=== PATIENT | male | born 1960 | race Caucasian/White ===

== ENCOUNTER 2024-08-22 23:15 | Observation (INO) | payer OTHER, SELFPAY ==
--- NOTE | ~2024-08-22 | CT_ITS ---
EXAMINATION: CT abdomen pelvis w con DATE: 08/23/2024 00:29 INDICATION: Right upper quadrant abdominal pain TECHNIQUE: Computed tomography (CT) of the abdomen and pelvis was performed with 100 CC Omnipaque 350 intravenous contrast. Automated exposure control and iterative reconstruction technique were employe d. Exam dose: 456.07 mGy-cm total exam DLP. COMPARISON: None. FINDINGS: The lung bases are clear. Normal heart size. Coronary artery calcifications. No pericardial or pleural effusion. There are multiple stones in the dependent aspect of the gallbladder. There is gallbladder distention and borderline gallbladder wall thickening and slight pericholecystic fat stranding. Acute cholecyst itis is not excluded. No bile duct or pancreatic duct dilatation. No hepatic or pancreatic space-occupying mass lesion. No pancreatic calcification. Normal morphology of the adrenal glands. No renal mass lesion or urinary tract calculus or hydroureteronephrosis. There is prostate enlargement. Urinary bladder is unremarkable. Normal caliber of the abdominal aorta. No intraperitoneal or retroperitoneal or pelvic mass lesion or adenopathy or ascites. No appendix is not definitively localized. There is no evidence of appendicitis. No bowel obstruction , bowel wall thickening, pneumatosis or intraperitoneal free air. Small fat-containing left inguinal hernia. Included skeletal structures are unremarkable. IMPRESSION: Gallbladder distention, or lying gallbladder wall thickening, minimal pericholecystic fa t stranding and gallstones. Findings suggest acute cholecystitis. Reviewed, dictated and finalized at [facility] Reviewed, dictated and finalized at [facility]. GER FOREIGN IMPRESSION: Gallbladder distention, or lying gallbladder wall thickening, mini mal pericholecystic fat stranding and gallstones. Findings suggest acute cholec ystitis.
[2024-08-22 23:29] VITALS: BP 149/79; PULSE 84; RESP 15; TEMP 36.3; O2SAT 99
[2024-08-22 23:34] LABS: Basophils Absolute Auto 0.1 K/mm3 (0.0-0.1); Basophils Percent Auto 0.3 % (0.2-1.2); Eosinophils Absolute Auto 0.4 K/mm3 (0-0.3); Eosinophils Percent Auto 2.3 % (0-4.4); Hematocrit 41.3 % (42.0-52.0); Hemoglobin 14.3 g/dL (14.0-18.0); Immature Granulocyte Absolute 0.05 K/mm3 (0.00-0.031); Immature Granulocyte Percent A 0.3 % (0-0.5); Lymphocytes Absolute Auto 1.71 K/mm3 (0.9-3.2); Lymphocytes Percent Auto 9.6 % (18.3-44.2); Mean Corpuscular HGB Conc 34.6 g/dl (32-36); Mean Corpuscular Hemoglobin 30.2 pg (26-34); Mean Corpuscular Volume 87.1 fl (80-100); Mean Platelet Volume 10.2 fl (7.4-10.4); Monocytes Absolute Auto 1.4 K/mm3 (0.1-0.6); Monocytes Percent Auto 7.9 % (2.6-8.5); Neutrophils Absolute Auto 14.2 K/mm3 (1.3-6.7); Neutrophils Percent Auto 79.6 % (45.5-73.1); Platelet Count Result 241 k/mm3 (150-375); Red Blood Count 4.74 M/mm3 (4.6-6.20); Red Cell Distribution Width 12.8 % (11.5-14.5); White Blood Count 17.8 K/mm3 (4.5-10.0)
[2024-08-22 23:53] LABS: Alanine Aminotransferase 45 U/L (6-50); Albumin Level 4.9 g/dL (3.5-5.1); Alkaline Phosphatase 138 U/L (38-126); Anion Gap 5 mmol/L (4-12); Aspartate Amino Transferase 53 U/L (17-59); Bilirubin,Total 0.8 mg/dL (0.2-1.3); Blood Urea Nitrogen 25 mg/dL (9-20); Carbon Dioxide 30 mmol/L (22-30); Chloride 100 mmol/L (98-107); Estimated CRCL calculation 51 ml/min; Estimated Glomerular Filt Rate > 60; Glucose 169 mg/dL (65-110); Lipase 229 U/L (23-300); Potassium 4.1 mmol/L (3.4-5.0); Sodium 135 mmol/L (137-145)
[2024-08-23] MEDS: FAMOTIDINE 20 MG/2 ML VIAL IV PUSH (00:18)
[2024-08-23] MEDS: ONDANSETRON INJ 4 MG/2 ML VIAL IV PUSH (00:18)
[2024-08-23] MEDS: MORPHINE SULFATE (*CRX) 4 MG/ML INJ IV PUSH (00:18)
--- NOTE | 2024-08-23 00:47 | ED_ITS ---
HPI - Abdominal Pain General Chief Complaint: Abdominal Pain <CRISSY Jc Last Filed: 08/23/24 01:45> Stated Complaint: Stomach hurts <CRISSY Jc Last Filed: 08/23/24 01:45> Time Seen by Provider: 08/22/24 23:47 <CRISSY Jc Last Filed: 08/23/24 01:45> Source: patient <CRISSY Jc Last Filed: 08/23/24 01:45> Mode of arrival: ambulatory <CRISSY Jc Last Filed: 08/23/24 01:45> Limitations: no limitations <CRISSY Jc Last Filed: 08/23/24 01:45> History of Present Illness HPI narrative: Patient is a 64-year-old male who presents the ED with report of right upper quadrant abdominal pain. Patient reports pain began last night around 2am. Has been constant since then. Has taken aleve and tylenol w/o improvement. Denies any alleviating factors. Pain did not change much with eating. Denies significant nausea, vomiting, diarrhea, constipation, fevers. Has never had pain like this before. Has history of diabetes and has been on Mounjaro, recently had his dose increased. He does mention he has lost approximately 30 lb the last 6 months intentionally. <CRISSY Jc Last Filed: 08/23/24 01:45> Related Data Allergies/Adverse Reactions: Allergies Allergy/AdvReac Type Severity Reaction Status Date / Time erythromycin base Allergy Mild Verified 12/01/08 10:48 <CRISSY Jc Last Filed: 08/23/24 01:45> Review of Systems 2 Review of Systems: All systems reviewed & are unremarkable except as noted in HPI. <CRISSY Jc Last Filed: 08/23/24 01:45> All systems reviewed & are unremarkable except as noted in HPI and below < CRISSY Jc Last Filed: 08/23/24 01:45> Exam 2 Narrative: GENERAL: Well appearing, well-nourished, non-toxic, in no acute distress. HEAD: Normocephalic, atraumatic. RESPIRATORY: Airway patent, respirations nonlabored. Clear to auscultation bilaterally, no rales, rhonchi, wheezing. CARDIOVASCULAR: Regular rate and rhythm without murmurs, rubs, or gallops. ABDOMINAL: Soft, focal TTP and fullness in RUQ. No other significant tenderness throughout abdomen, nondistended. Normoactive BS. MUSCULOSKELETAL: Moves all extremities. No gross deformities. SKIN: Warm, dry, normal color. NEURO: A&O X3. Speech clear. PSYCHIATRIC: Appropriate mood and affect. Normal interaction. <Evelina Uribe PA-C - Last Filed: 08/23/24 01:45> Course JACKHAMMER SPLITTER OPERATOR/PA Physician Supervision For this patient encounter, I reviewed the JACKHAMMER SPLITTER OPERATOR or PA documentation, treatment plan, and medical decision making; and I had [id number] time with this patient. <Dean Hubbard MD - Last Filed: 08/23/24 04:34> Vital Signs Vital signs: Vital Signs Temperature 36.3 C L 08/22/24 23:29 Pulse Rate 84 08/22/24 23:29 Respiratory Rate 15 08/22/24 23:29 Blood Pressure 149/79 H 08/22/24 23:29 Pulse Oximetry 99 08/22/24 23:29 Temperature 36.3 C L 08/22/24 23:29 Pulse Rate 77 08/23/24 03:51 Respiratory Rate 18 08/23/24 03:51 Blood Pressure 141/88 H 08/23/24 03:51 Pulse Oximetry 94 08/23/24 03:51 <Evelina Uribe PA-C - Last Filed: 08/23/24 01:45> Vital Signs Temperature 36.3 C L 08/22/24 23:29 Pulse Rate 84 08/22/24 23:29 Respiratory Rate 15 08/22/24 23:29 Blood Pressure 149/79 H 08/22/24 23:29 Pulse Oximetry 99 08/22/24 23:29 Temperature 36.3 C L 08/22/24 23:29 Pulse Rate 77 08/23/24 03:51 Respiratory Rate 18 08/23/24 03:51 Blood Pressure 141/88 H 08/23/24 03:51 Pulse Oximetry 94 08/23/24 03:51 <Dean Hubbard MD - Last Filed: 08/23/24 04:34> MDM - Abdominal Pain MDM Narrative Medical decision making narrative: Patient presented to ED with right upper quadrant abdominal pain onset yesterday, constant since then. Vital signs stable upon arrival. Patient with moderate tenderness in right upper quadrant, area of fullness in upper abdomen. CBC with white blood cell count of 17.8. Neutrophil predominance. No bandemia. CMP is unremarkable. Blood glucose is mildly elevated to 169. Bilirubin, AST, ALT are within normal range. Lipase within normal range. CT scan of abdomen pelvis was obtained and pending. Patient denied improvement with morphine. Will give dilaudid. Care signed out to Dr. Hubbard at shift change pending STAT RAD CT results. < Evelina Uribe PA-C - Last Filed: 08/23/24 01:45> Patient presented to ED with right upper quadrant abdominal pain onset yesterday, constant since then. Vital signs stable upon arrival. Patient with moderate tenderness in right upper quadrant, area of fullness in upper abdomen. CBC with white blood cell count of 17.8. Neutrophil predominance. No bandemia. CMP is unremarkable. Blood glucose is mildly elevated to 169. Bilirubin, AST, ALT are within normal range. Lipase within normal range. CT scan of abdomen pelvis was obtained and pending. Patient denied improvement with morphine. Will give dilaudid. Care signed out to Dr. Hubbard at shift change pending STAT RAD CT results. CT scan showed evidence of acute cholecystitis. Case was discussed with Dr. Mitchell will admit the patient <Dean Hubbard MD - Last Filed: 08/23/24 04:34> Medical Records Attestation: I reviewed the patient's medical records. <Evelina Uribe PA-C - Last Filed: 08/23/24 01:45> Lab Data Attestation: I reviewed the patient's lab results. <Evelina Uribe PA-C - Last Filed: 08/23/24 01:45> Result diagrams: 08/22/24 23:28 08/22/24 23:28 <Evelina Uribe PA-C - Last Filed: 08/23/24 01:45> Labs: Lab Results 08/22/24 08/23/24 Range/Units 23:28 02:11 WBC 17.8 H (4.5-10.0) K/mm3 RBC 4.74 (4.6-6.20) M/mm3 Hgb 14.3 (14.0-18.0) g/dL Hct 41.3 L (42.0-52.0) % MCV 87.1 (80-100) fl MCH 30.2 (26-34) pg MCHC 34.6 (32-36) g/dl RDW 12.8 (11.5-14.5) % Plt Count 241 (150-375) k/mm3 MPV 10.2 (7.4-10.4) fl Immature Gran % (Auto) 0.3 (0-0.5) % Neut % (Auto) 79.6 H (45.5-73.1) % Lymph % (Auto) 9.6 L (18.3-44.2) % [place] % (Auto) 7.9 (2.6-8.5) % Eos % (Auto) 2.3 (0-4.4) % Baso % (Auto) 0.3 (0.2-1.2) % Lymph # (Auto) 1.71 (0.9-3.2) K/mm3 [place] # (Auto) 1.4 H (0.1-0.6) K/mm3 Eos # (Auto) 0.4 H (0-0.3) K/mm3 Baso # (Auto) 0.1 (0.0-0.1) K/mm3 Abs Immat Gran (auto) 0.05 H (0.00-0.031) K/mm3 Absolute Neuts (auto) 14.2 H (1.3-6.7) K/mm3 Absolute Nucleated RBC 0.000 (0.0-0.012) K/mm3 Nucleated RBC % 0.0 (0.0-0.2) % Sodium 135 L (137-145) mmol/L Potassium 4.1 (3.4-5.0) mmol/L Chloride 100 (98-107) mmol/L Carbon Dioxide 30 (22-30) mmol/L Anion Gap 5 (4-12) mmol/L BUN 25 H (9-20) mg/dL Creatinine 1.20 (0.7-1.3) mg/dL Estim Creat Clear Calc 51 ml/min Estimated GFR > 60 (59 - ) Glucose 169 H (65-110) mg/dL Calcium 10.0 (8.4-10.2) mg/dL Total Bilirubin 0.8 (0.2-1.3) mg/dL AST 53 (17-59) U/L ALT 45 (6-50) U/L Alkaline Phosphatase 138 H (38-126) U/L Total Protein 8.0 (6.3-8.2) g/dL Albumin 4.9 (3.5-5.1) g/dL Lipase 229 (23-300) U/L Urine Color Yellow (Yellow) Urine Appearance Clear (Clear) Urine pH 5.5 (5.0-9.0) Ur Specific [place] > 1.045 H (1.001-1.035) Urine Protein 1+ H (Negative) mg/dL Urine Glucose (UA) Negative (Negative) mg/dL Urine Ketones Negative (Negative) mg/dL Ur Blood (Man) Negative (Negative) Urine Nitrate Negative (Negative) Urine Bilirubin Negative (Negative) Urine Urobilinogen 0.2 (<2.0) mg/dL Leukocyte Esterase Rfl Negative (Negative) FERCHO/UL Urine RBC 0-2 (0-2) /hpf Urine WBC 0-5 (0-3) /hpf Ur Squamous Epith Cells None seen (Few) /hpf Urine Bacteria None seen /hpf Urine Casts 0-2 <Evelina Uribe PA-C - Last Filed: 08/23/24 01:45> Lab Results 08/22/24 08/23/24 Range/Units 23:28 02:11 WBC 17.8 H (4.5-10.0) K/mm3 RBC 4.74 (4.6-6.20) M/mm3 Hgb 14.3 (14.0-18.0) g/dL Hct 41.3 L (42.0-52.0) % MCV 87.1 (80-100) fl MCH 30.2 (26-34) pg MCHC 34.6 (32-36) g/dl RDW 12.8 (11.5-14.5) % Plt Count 241 (150-375) k/mm3 MPV 10.2 (7.4-10.4) fl Immature Gran % (Auto) 0.3 (0-0.5) % Neut % (Auto) 79.6 H (45.5-73.1) % Lymph % (Auto) 9.6 L (18.3-44.2) % [place] % (Auto) 7.9 (2.6-8.5) % Eos % (Auto) 2.3 (0-4.4) % Baso % (Auto) 0.3 (0.2-1.2) % Lymph # (Auto) 1.71 (0.9-3.2) K/mm3 [place] # (Auto) 1.4 H (0.1-0.6) K/mm3 Eos # (Auto) 0.4 H (0-0.3) K/mm3 Baso # (Auto) 0.1 (0.0-0.1) K/mm3 Abs Immat Gran (auto) 0.05 H (0.00-0.031) K/mm3 Absolute Neuts (auto) 14.2 H (1.3-6.7) K/mm3 Absolute Nucleated RBC 0.000 (0.0-0.012) K/mm3 Nucleated RBC % 0.0 (0.0-0.2) % Sodium 135 L (137-145) mmol/L Potassium 4.1 (3.4-5.0) mmol/L Chloride 100 (98-107) mmol/L Carbon Dioxide 30 (22-30) mmol/L Anion Gap 5 (4-12) mmol/L BUN 25 H (9-20) mg/dL Creatinine 1.20 (0.7-1.3) mg/dL Estim Creat Clear Calc 51 ml/min Estimated GFR > 60 (59 - ) Glucose 169 H (65-110) mg/dL Calcium 10.0 (8.4-10.2) mg/dL Total Bilirubin 0.8 (0.2-1.3) mg/dL AST 53 (17-59) U/L ALT 45 (6-50) U/L Alkaline Phosphatase 138 H (38-126) U/L Total Protein 8.0 (6.3-8.2) g/dL Albumin 4.9 (3.5-5.1) g/dL Lipase 229 (23-300) U/L Urine Color Yellow (Yellow) Urine Appearance Clear (Clear) Urine pH 5.5 (5.0-9.0) Ur Specific [place] > 1.045 H (1.001-1.035) Urine Protein 1+ H (Negative) mg/dL Urine Glucose (UA) Negative (Negative) mg/dL Urine Ketones Negative (Negative) mg/dL Ur Blood (Man) Negative (Negative) Urine Nitrate Negative (Negative) Urine Bilirubin Negative (Negative) Urine Urobilinogen 0.2 (<2.0) mg/dL Leukocyte Esterase Rfl Negative (Negative) FERCHO/UL Urine RBC 0-2 (0-2) /hpf Urine WBC 0-5 (0-3) /hpf Ur Squamous Epith Cells None seen (Few) /hpf Urine Bacteria None seen /hpf Urine Casts 0-2 <Dean Hubbard MD - Last Filed: 08/23/24 04:34> Imaging Data Attestation: I personally reviewed and interpreted this imaging study as follows: < Evelina Uribe PA-C - Last Filed: 08/23/24 01:45> Discharge Plan Discharge Clinical Impression: Right upper quadrant abdominal pain, Cholelithiasis, Acute cholecystitis <CRISSY Jc Last Filed: 08/23/24 01:45> Patient Disposition: Still a Patient <CRISSY Jc Last Filed: 08/23/24 01:45> Condition: Stable <CRISSY Jc Last Filed: 08/23/24 01:45> Instructions: Antibiotic Form <CRISSY Jc Last Filed: 08/23/24 01:45> Patient Language: Sinhala <CRISSY Jc Last Filed: 08/23/24 01:45> Follow-up/Referrals: PHYSICIAN NOT ON STAFF,NONSTAFF [Primary Care Provider] - <CRISSY Jc Last Filed: 08/23/24 01:45> Time of Disposition: 04:33 <Evelina Uribe PA-C - Last Filed: 08/23/24 01:45> 04:33 <Dean Hubbard MD - Last Filed: 08/23/24 04:34> Sign Out Sign Out Data: Patient Sign Out occurred on 08/23/24 at 01:50. Patient's care was discussed, and care was transferred from Evelina Uribe PA-C to Dean Hubbard MD. <Evelina Uribe PA-C - Last Filed: 08/23/24 01:45>
[2024-08-23] MEDS: HYDROmorphone HCL INJ (*CRX) 1 MG/ML SYR IV PUSH ×5 (01:47→21:32)
[2024-08-23 02:24] LABS: Add Urine Microscopic? YES; Appearance Urine Clear (Clear); Bacteria Urine None Seen /hpf; Bilirubin Urine Negative (Negative); Blood Urine Negative (Negative); Color Urine Yellow (Yellow); Glucose Urine UA Negative (Negative); Ketones Urine Negative (Negative); Leukocyte Esterase Ur Negative LEU/UL (Negative); Nitrate Urine Negative (Negative); Non Pathogenic Casts 0-2; Protein Urine 1+ mg/dL (Negative); RBC Urine 0-2 /hpf (0-2); Specific Grav Ur > 1.045 (1.001-1.035); Squamous Epithelial Cell Urine None Seen /hpf (Few); Urobilinogen Urine 0.2 mg/dL (<2.0); WBC Urine 0-5 /hpf (0-3); pH Urine 5.5 (5.0-9.0)
[2024-08-23 02:35] VITALS: BP 122/71; PULSE 75; RESP 18; O2SAT 95
[2024-08-23] MEDS: SODIUM CHLORIDE 0.9% IV 1,000 ML 999 ML IV CONT (03:01)
[2024-08-23 03:51] VITALS: BP 141/88; PULSE 77; RESP 18; O2SAT 94
[2024-08-23] MEDS: PIPERACILLN/TAZ 3.375GM/NS50ML 3.375 GM/50 ML BAG IVPB ×4 (05:19→23:05)
[2024-08-23] MEDS: SODIUM CHLORIDE 0.9% IV 1,000 ML 125 ML IV CONT ×3 (05:19→22:41)
[2024-08-23 05:54] VITALS: BP 139/70; PULSE 96; RESP 18; O2SAT 95
--- NOTE | 2024-08-23 06:01 | ADMGEN ---
This patient, Bruno Kelsey, was admitted to Medical Room 260-. Patient/family oriented to hospital policies and general routines including ID bracelet, bed and alarms, visiting hours, pain management, procedures, bathroom and other care routines, personal items, smoking policy, room service/diet, and visiting hours. Information on how to activate the Rapid Response Team has been discussed. Patient/Family are encouraged to report perceived risks to care and to ask questions if they do not understand what they are told or what they should do.
[2024-08-23 06:10] VITALS: BP 121/69; PULSE 84; RESP 16; TEMP 37.1; O2SAT 96; BMI 28.3
[2024-08-23] MEDS: PANTOPRAZOLE SODIUM IV 40 MG VIAL IV PUSH (08:01)
[2024-08-23] MEDS: ACETAMINOPHEN 325 MG TABLET 650 MG PO (08:07)
--- NOTE | 2024-08-23 11:52 | P.HP_ITS ---
H&P: HPI History of Present Illness Date/Time: 08/23/24 11:52 Chief Complaint: Acute cholecystitis Narrative: The patient is a 64-year-old male presenting to the emergency department complaining of severe epigastric, right upper quadrant abdominal pain. The patient reports associated bloating and nausea. The patient reports the pain started acutely overnight on Saturday. The patient reports the pain is constant. The patient denies any previous similar episodes. Workup in the hospital, including imaging, is significant for acute cholecystitis. Review of Systems Review of Systems: All systems reviewed & are unremarkable except as noted in HPI and below PMFSH Family History Family History Mother Ovarian cancer Father Diabetes mellitus H/O heart artery stent Social History Social History Smoking status: Never smoker Alcohol intake: never Substance use: never Substance use type: does not use Do You Feel Safe in your Home?: Yes Lack of Transportation: No Lack of Food: Never True Current Housing: I Have Housing Concerned About Future Housing: No Difficulty Paying Gas/Electric Bills: No Difficulty Paying for Meds: No Currently Unemployed: No Education: Bachelor's Degree Difficulty w/ Childcare or Family Care: No Spiritual care concerns: No Comments PMH - HTN, DM SH - appendectomy Meds Home Medications and Allergies Home Medications ?Medication ?Instructions ?Recorded ?Confirmed ?Type acetaminophen 650 mg 1,300 mg PO Q8H PRN pain 08/23/24 08/23/24 History tablet,extended release (8 Hour Pain Reliever) aspirin 81 mg tablet,delayed 81 mg PO DAILY 08/23/24 08/23/24 History release (Adult Aspirin Regimen) duloxetine 60 mg capsule,delayed 60 mg PO DAILY 08/23/24 08/23/24 History release glucosamine sulfate 750 mg tablet 1,500 mg PO DAILY 08/23/24 08/23/24 History hydrochlorothiazide 25 mg tablet 25 mg PO DAILY 08/23/24 08/23/24 History losartan 50 mg tablet 50 mg PO DAILY 08/23/24 08/23/24 History metformin 500 mg tablet,extended 2,000 mg PO DAILY 08/23/24 08/23/24 History release 24 hr multivitamin (Daily Multi-Vitamin 1 tablet PO DAILY 08/23/24 08/23/24 History tablet) naproxen sodium 220 mg capsule 220 mg PO Q8H 08/23/24 08/23/24 History (Aleve) pantoprazole 40 mg tablet,delayed 40 mg PO DAILY 08/23/24 08/23/24 History release ropinirole 0.25 mg tablet 0.25 mg PO HS 08/23/24 08/23/24 History rosuvastatin 40 mg tablet 40 mg PO HS 08/23/24 08/23/24 History tirzepatide 5 mg/0.5 mL 7.5 mg subcut WEEKLY 08/23/24 08/23/24 History subcutaneous pen injector (Mounjaro) Allergies Allergy/AdvReac Type Severity Reaction Status Date / Time erythromycin base Allergy Mild Verified 12/01/08 10:48 Vital Signs Vital Signs - 24 hr 08/22/24 23:29 08/23/24 02:35 08/23/24 03:51 Temperature 36.3 C L Pulse Rate 84 75 77 Respiratory Rate 15 18 18 Blood Pressure 149/79 H 122/71 141/88 H Pulse Oximetry 99 95 94 Oxygen Delivery 08/23/24 05:54 08/23/24 06:10 08/23/24 08:01 Temperature 37.1 C Pulse Rate 96 84 Respiratory Rate 18 16 Blood Pressure 139/70 121/69 Pulse Oximetry 95 96 Oxygen Delivery Room Air Exam Const: General: cooperative, no acute distress and uncomfortable HENMT: Head: normal to inspection, normocephalic and atraumatic Eyes: General: appearance normal, both eyes and all related structures Neck: Neck: normal visual inspection, full ROM and no lymphadenopathy Resp: Auscultation: clear to auscultation bilaterally Cardio: Rate: regular rate Rhythm: regular rhythm GI: Inspection: normal to inspection and distended GI Palp: Yes abdominal tenderness, Yes Soft to palpation and Yes Tenderness to palpation present (GI) Skin: General skin exam: normal color and no rashes or lesions noted Neuro: General: patient oriented x3 and CN's II-XI intact bilaterally Extrem: General: normal to inspection and full ROM H&P: Results Labs Labs: Short CBC 08/22/24 Range/Units 23:28 WBC 17.8 H (4.5-10.0) K/mm3 Hgb 14.3 (14.0-18.0) g/dL Hct 41.3 L (42.0-52.0) % Plt Count 241 (150-375) k/mm3 BMP 08/22/24 23:28 Sodium 135 L Potassium 4.1 Chloride 100 Carbon Dioxide 30 BUN 25 H Creatinine 1.20 Glucose 169 H Calcium 10.0 Liver Function 08/22/24 Range/Units 23:28 Total Bilirubin 0.8 (0.2-1.3) mg/dL AST 53 (17-59) U/L ALT 45 (6-50) U/L Alkaline Phosphatase 138 H (38-126) U/L Albumin 4.9 (3.5-5.1) g/dL Urine 08/23/24 Range/Units 02:11 Urine Color Yellow (Yellow) Urine Appearance Clear (Clear) Urine pH 5.5 (5.0-9.0) Ur Specific [place] > 1.045 H (1.001-1.035) Urine Protein 1+ H (Negative) mg/dL Urine Glucose (UA) Negative (Negative) mg/dL Imaging CT scan - abdomen: My impression: Acute cholecystitis Assessment and Plan Assessment and plan (1) Acute cholecystitis: Code(s): K81.0 - Acute cholecystitis Status: Acute Assessment and Plan: continue antibiotics, will start clears, discussed with patient and would like to proceed with urgent cholecystectomy (2) Hypertension: Code(s): I10 - Essential (primary) hypertension Status: Acute Assessment and Plan: stable, continue home medications (3) Diabetes: Code(s): E11.9 - Type 2 diabetes mellitus without complications Status: Acute Assessment and Plan: continue to monitor blood sugars, resume home medications
[2024-08-23 13:01] LABS: Glucose Point of Care 150 mg/dl (65-105)
[2024-08-23 16:22] VITALS: BP 131/75; PULSE 92; RESP 16; TEMP 37.3; O2SAT 92
[2024-08-23 17:22] LABS: Glucose Point of Care 153 mg/dl (65-105)
[2024-08-23] MEDS: HYDROcodone/acetaminophen (*CRX) 5-325 MG TABLET 1 TAB PO (18:53)
[2024-08-23 22:09] VITALS: BP 117/69; PULSE 102; RESP 16; O2SAT 92
[2024-08-23 22:57] LABS: Glucose Point of Care 150 mg/dl (65-105)
[2024-08-24] VITALS (10 sets, daily range): BP systolic 114–164; BP diastolic 72–90; PULSE 100–135; RESP 14–22; TEMP 36.2–37; O2SAT 90–100
[2024-08-24 01:52] LABS: Glucose Point of Care 131 mg/dl (65-105)
[2024-08-24] MEDS: PIPERACILLN/TAZ 3.375GM/NS50ML 3.375 GM/50 ML BAG IVPB ×4 (05:12→23:10)
[2024-08-24] MEDS: HYDROcodone/acetaminophen (*CRX) 5-325 MG TABLET 1 TAB PO ×4 (05:16→20:45)
[2024-08-24 05:41] LABS: Hematocrit 35.9 % (42.0-52.0); Hemoglobin 11.9 g/dL (14.0-18.0); Mean Corpuscular HGB Conc 33.1 g/dl (32-36); Mean Corpuscular Hemoglobin 29.8 pg (26-34); Mean Platelet Volume 10.3 fl (7.4-10.4); Platelet Count Result 175 k/mm3 (150-375); Red Blood Count 3.99 M/mm3 (4.6-6.20); White Blood Count 19.4 K/mm3 (4.5-10.0)
[2024-08-24 06:03] LABS: Alanine Aminotransferase 38 U/L (6-50); Albumin Level 3.5 g/dL (3.5-5.1); Alkaline Phosphatase 129 U/L (38-126); Anion Gap 6 mmol/L (4-12); Aspartate Amino Transferase 31 U/L (17-59); Bilirubin,Total 1.2 mg/dL (0.2-1.3); Blood Urea Nitrogen 12 mg/dL (9-20); Calcium 8.3 mg/dL (8.4-10.2); Carbon Dioxide 24 mmol/L (22-30); Chloride 105 mmol/L (98-107); Estimated CRCL calculation 65 ml/min; Estimated Glomerular Filt Rate > 60; Glucose 125 mg/dL (65-110); Potassium 3.8 mmol/L (3.4-5.0); Sodium 135 mmol/L (137-145)
--- NOTE | 2024-08-24 07:26 | WPDHPUPDATE1 ---
History and Physical Update Update Date/Time: 08/24/24 07:26 History and Physical has been reviewed, including an updated exam of the patient. There are NO changes in the patient's condition. Risks, benefits, and alternatives have been discussed and questions answered. Patient agrees to proceed with procedure.
[2024-08-24] MEDS: HYDROmorphone HCL INJ (*CRX) 1 MG/ML SYR IV PUSH (07:33)
[2024-08-24 08:14] LABS: Glucose Point of Care 117 mg/dl (65-105)
[2024-08-24 08:49] LABS: Glucose Point of Care 102 mg/dl (65-105)
--- NOTE | 2024-08-24 09:11 | P.PNAN_ITS ---
Anes - Initial Pre Proc Eval Procedure: Operation Date: 08/24/24 09:30 Proposed Procedures p Laparoscopic Cholecystectomy - Keisha Mitchell MD Date/Time: 08/24/24 09:11 Surgeon: Keisha Mitchell MD Pre Op Diagnosis: Acute cholecystitis Patient Data Age: 64 Gender: M Height: 1.65 m Weight: 77.4 kg Last Vital Signs Temp 99.2 F 08/23/24 16:22 Pulse 102 H 08/23/24 22:09 Resp 16 08/23/24 22:09 BP 117/69 08/23/24 22:09 Pulse Ox 92 08/23/24 22:09 O2 Del Method Room Air 08/24/24 08:03 Allergies Allergy/AdvReac Type Severity Reaction Status Date / Time erythromycin base Allergy Mild Verified 12/01/08 10:48 Home Medications ?Medication ?Instructions ?Recorded ?Confirmed ?Type acetaminophen 650 mg 1,300 mg PO Q8H PRN pain 08/23/24 08/23/24 History tablet,extended release (8 Hour Pain Reliever) aspirin 81 mg tablet,delayed 81 mg PO DAILY 08/23/24 08/23/24 History release (Adult Aspirin Regimen) duloxetine 60 mg capsule,delayed 60 mg PO DAILY 08/23/24 08/23/24 History release glucosamine sulfate 750 mg tablet 1,500 mg PO DAILY 08/23/24 08/23/24 History hydrochlorothiazide 25 mg tablet 25 mg PO DAILY 08/23/24 08/23/24 History losartan 50 mg tablet 50 mg PO DAILY 08/23/24 08/23/24 History metformin 500 mg tablet,extended 2,000 mg PO DAILY 08/23/24 08/23/24 History release 24 hr multivitamin (Daily Multi-Vitamin 1 tablet PO DAILY 08/23/24 08/23/24 History tablet) naproxen sodium 220 mg capsule 220 mg PO Q8H 08/23/24 08/23/24 History (Aleve) pantoprazole 40 mg tablet,delayed 40 mg PO DAILY 08/23/24 08/23/24 History release ropinirole 0.25 mg tablet 0.25 mg PO HS 08/23/24 08/23/24 History rosuvastatin 40 mg tablet 40 mg PO HS 08/23/24 08/23/24 History tirzepatide 5 mg/0.5 mL 7.5 mg subcut WEEKLY 08/23/24 08/23/24 History subcutaneous pen injector (Mounjaro) Laboratory Tests 08/23/24 08/23/24 08/23/24 12:52 17:16 22:33 WBC RBC Hgb Hct MCV MCH MCHC RDW Plt Count MPV Sodium Potassium Chloride Carbon Dioxide Anion Gap BUN Creatinine Estim Creat Clear Calc Estimated GFR Glucose POC Capillary Glucose 150 H mg/dl 153 H mg/dl 150 H mg/dl (65-105) (65-105) (65-105) Calcium Total Bilirubin AST ALT Alkaline Phosphatase Total Protein Albumin 08/24/24 08/24/24 08/24/24 00:56 05:31 08:11 WBC 19.4 H K/mm3 (4.5-10.0) RBC 3.99 L M/mm3 (4.6-6.20) Hgb 11.9 L g/dL (14.0-18.0) Hct 35.9 L % (42.0-52.0) MCV 90.0 fl (80-100) MCH 29.8 pg (26-34) MCHC 33.1 g/dl (32-36) RDW 13.0 % (11.5-14.5) Plt Count 175 k/mm3 (150-375) MPV 10.3 fl (7.4-10.4) Sodium 135 L mmol/L (137-145) Potassium 3.8 mmol/L (3.4-5.0) Chloride 105 mmol/L (98-107) Carbon Dioxide 24 mmol/L (22-30) Anion Gap 6 mmol/L (4-12) BUN 12 D mg/dL (9-20) Creatinine 0.90 mg/dL (0.7-1.3) Estim Creat Clear Calc 65 ml/min Estimated GFR > 60 (59 - ) Glucose 125 H mg/dL (65-110) POC Capillary Glucose 131 H mg/dl 117 H mg/dl (65-105) (65-105) Calcium 8.3 L mg/dL (8.4-10.2) Total Bilirubin 1.2 mg/dL (0.2-1.3) AST 31 U/L (17-59) ALT 38 U/L (6-50) Alkaline Phosphatase 129 H U/L (38-126) Total Protein 6.0 L g/dL (6.3-8.2) Albumin 3.5 g/dL (3.5-5.1) 08/24/24 08:47 WBC RBC Hgb Hct MCV MCH MCHC RDW Plt Count MPV Sodium Potassium Chloride Carbon Dioxide Anion Gap BUN Creatinine Estim Creat Clear Calc Estimated GFR Glucose POC Capillary Glucose 102 mg/dl (65-105) Calcium Total Bilirubin AST ALT Alkaline Phosphatase Total Protein Albumin Patient hx anesthesia problems: none Family hx anesthesia problems: none Results Review: All pre-operative results and documents have been reviewed as part of the pre- operative evaluation. [facility] Family History Family History Mother Ovarian cancer Father Diabetes mellitus H/O heart artery stent Social History Social History Smoking status: Never smoker Alcohol intake: never Substance use: never Substance use type: does not use Do You Feel Safe in your Home?: Yes Lack of Transportation: No Lack of Food: Never True Current Housing: I Have Housing Concerned About Future Housing: No Difficulty Paying Gas/Electric Bills: No Difficulty Paying for Meds: No Currently Unemployed: No Education: Bachelor's Degree Difficulty w/ Childcare or Family Care: No Spiritual care concerns: No Anes - Eval Final PreProcedure Day of Procedure 08/24/24 09:11 Patient weight: normal Heart: regular rate and rhythm Lungs: clear to auscultation Airway: Mallampati scale class II Neurological: alert and oriented Last oral intake: >/= 8 hours ASA classification: III Emergent: no Anesthetic plan: proceed Anesthesia type and monitoring: general ETT and standard monitoring Results Review: All pre-operative results and documents have been reviewed as part of the pre- operative evaluation. Informed Consent: The patient's anesthetic plan and its attendant risks and benefits were discussed with the patient/family/POA. Questions were solicited and answers provided to the satisfaction of the patient/family/POA.
[2024-08-24] MEDS: BUPIVACAINE/EPINEPHRINE 0.5% 30 ML VIAL INFILTRATE (10:16)
[2024-08-24] MEDS: LACTATED RINGERS 1,000 ML 30 ML IV CONT ×2 (10:38)
--- NOTE | 2024-08-24 10:41 | P.OP_ITS ---
Procedure Note - Detailed Date of Procedure 08/24/24 Pre-op Diagnosis Acute cholecystitis Post-op Diagnosis Other ( acute suppurative cholecystitis, cholelithiasis) Procedure Performed laparoscopic cholecystectomy Surgeon Keisha Mitchell MD Anesthesia General Indications 64-year-old male presenting to the emergency department complaining of severe right upper quadrant pain. Workup, including imaging significant for acute cholecystitis, cholelithiasis Findings acute suppurative cholecystitis, cholelithiasis Description of Procedure The patient was taken to the operating room placed in the supine position. After adequate induction of general anesthesia, the patient was prepped and draped in normal sterile fashion. A time-out was then performed to verify the patient's identity as well as the procedure being performed. I then made a 5 mm incision in the infraumbilical region. Through this, a Veress needle was placed into the peritoneal cavity and CO2 gas was then insufflated. After adequate pneumoperitoneum was achieved, the Veress needle was removed and a 5 mm optiview trocar was placed through this incision under direct visualization. I then placed the laparoscope through this trocar site and under direct visualization placed a further 12 mm subxiphoid port as well as 2 additional 5 mm ports in the right upper abdomen. The gallbladder was then identified and was noted to be severely inflamed, distended, and full of gallstones. Given the amount of inflammation, the gallbladder was decompressed. At this point, acute suppurative cholecystitis was noted with quite a bit of purulent drainage from the gallbladder. After decompression, I was able to place a grasper at the dome of the gallbladder and this was retracted anterior and cephalad up over the liver. A 2nd retractor was then placed at the infundibulum and retracted laterally, this allowed visualization of the triangle of Calot. I then was able to visualize the cystic duct in its entirety from its proximal insertion into the gallbladder, to its distal junction with the common hepatic/common bile duct junction. At this point, I carefully skeletonized the proximal cystic duct with the [place] dissector. I then clipped and transected the proximal cystic duct. Please note that this area was very friable. Next I visualized the cystic artery. Again the artery was skeletonized, clipped, and transected. I then used the Bovie cautery to take down the peritoneal attachments of the gallbladder off the liver bed. This was somewhat difficult given the amount of inflammation in the posterior space. Once the gallbladder specimen was completely detached, an endo-pouch was placed through the 12 mm port site. I then placed the gallbladder specimen into the Endo pouch and removed the endo- pouch from the 12 mm port site. The specimen will now be sent to pathology for further review. I then copiously irrigated the right upper quadrant. Hemostasis was noted in the liver bed, the clips were noted to be in good position on both the cystic duct stump and the cystic artery stump. No other pathology was noted in the right upper quadrant. I then moved the laparoscope to the subxiphoid port. No iatrogenic injury or other pathology was noted in the lower abdomen. Given the amount of infection, placed right upper quadrant TANGELA drain coming through the 5 mm right lateral port. I then closed the 12 mm troc ar site under direct visualization using the Ketan cone and 0 Vicryl suture. At this point, the abdomen was desufflated and all ports removed. All port sites were then closed with 4.O Monocryl subcuticular sutures. Dermabond was placed on each incision. The patient tolerated the procedure well, was extubated in the operating room postoperative and will be transferred to the recovery room in stable condition Estimated Blood Loss 20 Drains Yes Packing No Pathology Yes Complications No immediate complications Condition Stable Disposition PACU [facility] Billing Surgery - Charge Forward: Surgery Billing
[2024-08-24 10:50] LABS: Glucose Point of Care 147 mg/dl (65-105)
[2024-08-24] MEDS: PANTOPRAZOLE SODIUM IV 40 MG VIAL IV PUSH (12:05)
[2024-08-24 12:49] LABS: Glucose Point of Care 187 mg/dl (65-105)
[2024-08-24] MEDS: NAPROXEN SODIUM 220 MG TABLET PO ×2 (13:16→21:23)
[2024-08-24] MEDS: SODIUM CHLORIDE 0.9% IV 1,000 ML 125 ML IV CONT ×2 (16:05→20:42)
[2024-08-24] MEDS: ACETAMINOPHEN 325 MG TABLET 650 MG PO (17:15)
[2024-08-24 18:44] LABS: Glucose Point of Care 201 mg/dl (65-105)
[2024-08-24 21:26] LABS: Glucose Point of Care 159 mg/dl (65-105)
[2024-08-25] MEDS: SODIUM CHLORIDE 0.9% IV 1,000 ML 125 ML IV CONT (05:08)
[2024-08-25] MEDS: PIPERACILLN/TAZ 3.375GM/NS50ML 3.375 GM/50 ML BAG IVPB ×2 (05:08→11:48)
[2024-08-25] MEDS: NAPROXEN SODIUM 220 MG TABLET PO (05:09)
[2024-08-25 06:00] VITALS: BP 112/72; PULSE 110; RESP 18; O2SAT 93
[2024-08-25 08:53] VITALS: BP 129/73; PULSE 113; RESP 18; TEMP 36.2; O2SAT 94
[2024-08-25 08:56] VITALS: O2SAT 94
[2024-08-25] MEDS: hydroCHLOROthiazide 25 MG TABLET PO (08:56)
[2024-08-25] MEDS: LOSARTAN POTASSIUM 50 MG TABLET PO (08:56)
[2024-08-25] MEDS: metFORMIN HCL XR 500 MG TAB.SR.24H 2000 MG PO (08:56)
[2024-08-25] MEDS: MULTIVITAMINS THERAPEUTIC TAB (*BKC) 1 TABLET PO (08:56)
[2024-08-25] MEDS: PANTOPRAZOLE SODIUM IV 40 MG VIAL IV PUSH (08:57)
[2024-08-25] MEDS: ACETAMINOPHEN 325 MG TABLET 650 MG PO (11:55)
--- NOTE | 2024-08-25 13:16 | PM.DS ---
DS: Admitting Diagnosis Discharge Date 08/25/2024 Admitting Diagnosis acute cholecystitis DS: Discharge Diagnosis Discharge Diagnosis (1) Acute cholecystitis: Code(s): K81.0 - Acute cholecystitis Status: Acute Assessment and Plan: status post cholecystectomy, continue routine postoperative care, including drain care, home with p.o. antibiotics and analgesia, follow-up 1 week for drain removal DS: Summary Hospital Course Reason for hospitalization: acute cholecystitis Hospital Course: The patient is a 64-year-old male presenting to the emergency department complaining of severe upper abdominal pain. Workup, including imaging, significant for acute cholecystitis, cholelithiasis. The patient was admitted to the Surgical Service and upon evaluation the decision was made for urgent cholecystectomy. The patient was made NPO and started on IV antibiotics. The patient was brought to the operating room and cholecystectomy was performed. Please see full operative report for details. Of note, the patient was noted to have acute suppurative cholecystitis. Postoperatively the patient did well and was transferred back to the surgical floor. On postoperative day 1. The patient reports that he is feeling much improved. He is up and ambulating without issue. His pain is well controlled with p.o. analgesia. He is tolerating a regular diet. He will be discharged at this time with continued antibiotics and drain care. He will follow up with me in 1 week for removal of the drain. Status at Discharge Functional status at discharge: independent ambulation Overall status at discharge: patient is back to baseline Time Spent with Patient Time attestation: Total time spent providing and/or coordinating discharge services: Time spent: Less than 30 minutes Exam Const: General: cooperative, comfortable and no acute distress Resp: Auscultation: clear to auscultation bilaterally Cardio: Rate: regular rate Rhythm: regular rhythm GI: Inspection: normal to inspection and incision GI Palp: Yes abdominal tenderness and Yes Soft to palpation DS: Data Data Completed and Pending Pending studies at discharge: Pending at discharge 08/24/24 09:51 Surgical [PTH] Routine Labs on day of discharge: Labs from last 24 hours 08/24/24 08/24/24 20:25 18:40 POC Capillary Glucose 159 H 201 H Discharge Plan Discharge Attending physician on discharge: Keisha Mithcell Consulting providers: Yessy Foss Discharging Clinician: Keisha Mitchell Anticipated Discharge Date/Time: 08/25/24 13:10 Patient Disposition: Home, Self-Care Activity: as tolerated Diet: as tolerated Wound Care Instructions: remove dressing to shower and incision open to air Discharge Instructions: TANGELA drain care Patient Instructions: Antibiotic Form Patient Language: Romanian Stand Alone Forms: General Discharge Information Follow-up/Referrals: Keisha Mitchell MD [Physician] - 1 Week Discharge Medications: New hydrocodone-acetaminophen 5-325 mg tablet 1 tablet PO Q6H PRN (Reason: pain) Qty: 30 0RF ciprofloxacin HCl 500 mg tablet 500 mg PO Q12H Qty: 14 0RF metronidazole [Flagyl] 375 mg capsule 375 mg PO Q12H Qty: 14 0RF Continued duloxetine 60 mg capsule,delayed release(DR/EC) 60 mg PO DAILY hydrochlorothiazide 25 mg tablet 25 mg PO DAILY losartan 50 mg tablet 50 mg PO DAILY metformin 500 mg tablet extended release 24 hr 2,000 mg PO DAILY pantoprazole 40 mg tablet,delayed release (DR/EC) 40 mg PO DAILY ropinirole 0.25 mg tablet 0.25 mg PO HS rosuvastatin 40 mg tablet 40 mg PO HS Mounjaro 5 mg/0.5 mL pen injector 5 mg SUBCUT WEEKLY Patient Comments: Saturday acetaminophen [8 Hour Pain Reliever] 650 mg tablet extended release 1,300 mg PO Q8H PRN (Reason: pain) naproxen sodium [Aleve] 220 mg capsule 220 mg PO Q8H multivitamin [Daily Multi-Vitamin] Tablet 1 tablet PO DAILY glucosamine sulfate 750 mg tablet 1,500 mg PO DAILY Rx Instructions: administer with a meal aspirin [Adult Aspirin Regimen] 81 mg tablet,delayed release (DR/EC) 81 mg PO DAILY Date of admission: 08/23/24 04:34 Primary Care Provider: PHYSICIAN NOT ON STAFF,NONSTAFF Admitting Provider: Keisha Mitchell Attending physician on admission: Keisha Mitchell Condition: Stable
[2024-08-25 13:22] LABS: Hematocrit 32.1 % (42.0-52.0); Hemoglobin 10.7 g/dL (14.0-18.0); Mean Corpuscular HGB Conc 33.3 g/dl (32-36); Mean Corpuscular Volume 89.9 fl (80-100); Mean Platelet Volume 10.2 fl (7.4-10.4); Platelet Count Result 184 k/mm3 (150-375); Red Blood Count 3.57 M/mm3 (4.6-6.20); Red Cell Distribution Width 13.5 % (11.5-14.5)
[2024-08-25] MEDS: HYDROcodone/acetaminophen (*CRX) 5-325 MG TABLET 1 TAB PO (13:45)
== END 2024-08-25 14:00 | disposition home or self-care (01) ==
LOC: ANHED 08-23 04:34 → ANH2MED 08-23 05:50
PROVIDERS: Nurse Practitioner Family; Admitting Provider Surgery; Emergency Provider Emergency Medicine; Visit Provider Surgery
PROC: 0FT44ZZ Resection of Gallbladder, Percutaneous Endoscopic Approach (ICD-10-PCS; CPT 47562; principal; 2024-08-24 09:30)
DX: K80.00 Calculus of gallbladder with acute cholecystitis without obstruction (principal); I10 Essential (primary) hypertension; E11.9 Type 2 diabetes mellitus without complications; Z79.82 Long term (current) use of aspirin; Z79.84 Long term (current) use of oral hypoglycemic drugs; Z79.85 Long-term (current) use of injectable non-insulin antidiabetic drugs; Z79.899 Other long term (current) drug therapy
CPT/HCPCS: 47562; 36415; 74177; 80053; 81001; 82948; 83690; 85025; 85027; 87040; 88304; 96361; 96365; 96375; 96376; 99285; A9270; G0378; J0330; J1100; J1171; J2003; J2250; J2270; J2371; J2405; J2470; J2543; J2704; J3010; J7030; J7120; Q9967

== ENCOUNTER 2025-04-02 17:09 | Emergency (ER) | payer OTHER, SELFPAY ==
--- NOTE | ~2025-04-02 | XR_ITS ---
HISTORY: pain d/t heavy lifting -january. pain lateral COMPARISON: None TECHNIQUE: 3 views of the right shoulder were performed FINDINGS: No acute fracture. The glenohumeral and acromioclavicular joint space is maintained The visualized portion of the adjacent right lung is clear. The humeral head is well seated within the glenoid fossa. IMPRESSION: No acute fracture or anterior dislocation. Reviewed, dictated and finalized at location A.
[2025-04-02 17:21] VITALS: BP 152/95; PULSE 79; RESP 16; TEMP 36.6; O2SAT 99
--- NOTE | 2025-04-02 17:49 | ED_ITS ---
HPI - Extremity Injury (Upper) General Chief Complaint: Extremity Injury, Upper Stated Complaint: INJURED R SHOULDER Time Seen by Provider: 04/02/25 17:28 Source: patient and RN notes reviewed Mode of arrival: ambulatory Limitations: no limitations History of Present Illness HPI narrative: Patient presents today complaining of right shoulder pain radiating to the elbow. In January, patient injured himself at work while lifting heavy box. States his shoulder popped at that time and he has been having pain ever since. He has not had his arm evaluated since that time. States his pain starts hurting when raising his arm to 90? and he is unable to raise it any further than that without help from his left hand. Continues to do small repetitive motions at work. Reports some numbness to the forearm. He has tried Aleve and Tylenol with little relief. Related Data Home Medications ?Medication ?Instructions ?Recorded ?Confirmed ?Last Taken ?Type acetaminophen 650 mg 1,300 mg PO Q8H PRN pain 08/23/24 09/01/24 Unknown History tablet,extended release (8 Hour Pain Reliever) aspirin 81 mg tablet,delayed 81 mg PO DAILY 08/23/24 09/01/24 Unknown History release (Adult Aspirin Regimen) duloxetine 60 mg capsule,delayed 60 mg PO DAILY 08/23/24 09/01/24 Unknown History release glucosamine sulfate 750 mg tablet 1,500 mg PO DAILY 08/23/24 09/01/24 Unknown History hydrochlorothiazide 25 mg tablet 25 mg PO DAILY 08/23/24 09/01/24 Unknown History losartan 50 mg tablet 50 mg PO DAILY 08/23/24 09/01/24 Unknown History multivitamin (Daily Multi-Vitamin 1 tablet PO DAILY 08/23/24 09/01/24 Unknown History tablet) naproxen sodium 220 mg capsule 220 mg PO Q8H 08/23/24 09/01/24 Unknown History (Aleve) pantoprazole 40 mg tablet,delayed 40 mg PO DAILY 08/23/24 09/01/24 Unknown History release rosuvastatin 40 mg tablet 40 mg PO HS 08/23/24 09/01/24 08/22/24 History tirzepatide 5 mg/0.5 mL 5 mg subcut WEEKLY 08/23/24 09/01/24 Unknown History subcutaneous pen injector (Mounjaro) metformin 500 mg tablet,extended mg PO 04/02/25 Unknown History release 24 hr pregabalin 75 mg capsule mg 04/02/25 Unknown History Allergies Allergy/AdvReac Type Severity Reaction Status Date / Time erythromycin base Allergy Mild Rash Verified 04/02/25 17:27 [facility] Family History Family History Mother Ovarian cancer Father Diabetes mellitus H/O heart artery stent Social History Social History Smoking status: Never smoker Alcohol intake: never Substance use: never Substance use type: does not use Do You Feel Safe in your Home?: Yes Lack of Transportation: No Lack of Food: Never True Current Housing: I Have Housing Concerned About Future Housing: No Difficulty Paying Gas/Electric Bills: No Difficulty Paying for Meds: No Currently Unemployed: No Education: Bachelor's Degree Difficulty w/ Childcare or Family Care: No Spiritual care concerns: No Comments At time of signature, I have reviewed and agree with nursing past medical, surgical, social and family history unless otherwise noted. Please see nursing chart for further information. There is no relevant family history pertinent to the presenting complaint Exam Narrative: GENERAL: Well-appearing, well-nourished, and in no acute distress. HEAD: Normocephalic, atraumatic. EYES: EOMI. No redness or drainage. Conjunctivae normal. ENT: Mucous membranes pink and moist. NECK: Normal AROM. Neck is nontender. CHEST: No respiratory distress. EXTREMITIES: Right arm: Patient has some tenderness to the lateral shoulder but is nontender for the remainder of the upper back and shoulder. No bony tenderness present. Pain with flexion and abduction at 90?. Pain with even minor internal and external rotation. Distal sensation intact. Capillary refill normal. Radial pulse normal. SKIN: Warm, dry, no rash. Capillary refill normal. Normal skin turgor. NEURO: No focal deficits. Alert and oriented x3. Gait steady. PSYCH: Normal affect. No signs of depression or anxiety. Course Course Level of Care: Express Care Visit Vital Signs Vital signs: Vital Signs Temperature 98 F 04/02/25 17:21 Pulse Rate 79 04/02/25 17:21 Respiratory Rate 16 04/02/25 17:21 Blood Pressure 152/95 H 04/02/25 17:21 Pulse Oximetry 99 04/02/25 17:21 Temperature 98 F 04/02/25 17:21 Pulse Rate 79 04/02/25 17:21 Respiratory Rate 16 04/02/25 17:21 Blood Pressure 152/95 H 04/02/25 17:21 Pulse Oximetry 99 04/02/25 17:21 Reviewed MDM - Extremity Injury (Upper) MDM Narrative Medical decision making narrative: 65-year-old male patient presents with right shoulder pain. In January he moved a box and felt a pop in his shoulder now has pain with movement more than 90? flexion or abduction with radiation to elbow and numbness of the forearm intermittently. He has tried NSAIDs without improvement. Upon exam, he has some tenderness laterally, but no bony tenderness about the shoulder and scapula. Limited range of motion past 90?. Neurovascularly intact. X-rays negative. Recommend orthopedic follow-up for further evaluation. Vital signs stable. Patient agrees with plan. Differential Diagnosis Differential diagnosis: Likely other (Shoulder strain, rotator cuff tear, tendinitis) Imaging Data Radiologist's impression: ITS Impressions Shoulder X-Ray 04/02/25 18:18 IMPRESSION: No acute fracture or anterior dislocation. Critical Care Time Critical Care Time Critical Care Time: No Discharge Plan Discharge Clinical Impression: Injury of right shoulder Qualifiers: Encounter type: initial encounter Qualified Code(s): S49.91XA - Unspecified injury of right shoulder and upper arm, initial encounter Patient Disposition: Home Condition: Stable Instructions: Shoulder Pain (ED) Additional Instructions: Your x-ray is negative today. It is recommended that you follow-up with orthopedics for further evaluation of your shoulder. You may be required to follow-up with your employer/workman's comp first. You have been provided contact information for orthopedist in the area. Continue Tylenol and Aleve for discomfort if needed. Patient Language: Japanese Prescriptions: No Action metformin 500 mg tablet extended release 24 hr PO pregabalin 75 mg capsule duloxetine 60 mg capsule,delayed release(DR/EC) 60 mg PO DAILY hydrochlorothiazide 25 mg tablet 25 mg PO DAILY losartan 50 mg tablet 50 mg PO DAILY pantoprazole 40 mg tablet,delayed release (DR/EC) 40 mg PO DAILY rosuvastatin 40 mg tablet 40 mg PO HS Mounjaro 5 mg/0.5 mL pen injector 5 mg SUBCUT WEEKLY Patient Comments: Saturday acetaminophen [8 Hour Pain Reliever] 650 mg tablet extended release 1,300 mg PO Q8H PRN (Reason: pain) naproxen sodium [Aleve] 220 mg capsule 220 mg PO Q8H multivitamin [Daily Multi-Vitamin] Tablet 1 tablet PO DAILY glucosamine sulfate 750 mg tablet 1,500 mg PO DAILY Rx Instructions: administer with a meal aspirin [Adult Aspirin Regimen] 81 mg tablet,delayed release (DR/EC) 81 mg PO DAILY Follow-up/Referrals: Rahat Kim MD [Physician] - Prudence,Razia Gaxiola MD [Primary Care Provider] - Time of Disposition: 18:34
== END 2025-04-02 18:40 | disposition home or self-care (01) ==
PROVIDERS: Emergency Provider Nurse Practitioner; PCP Student in an Organized Health Care Education/Training Program
DX: S49.91XA Unspecified injury of right shoulder and upper arm, initial encounter (principal); X50.0XXA Overexertion from strenuous movement or load, initial encounter; Y99.0 Civilian activity done for income or pay; Z79.82 Long term (current) use of aspirin; I10 Essential (primary) hypertension; E11.9 Type 2 diabetes mellitus without complications; Z79.84 Long term (current) use of oral hypoglycemic drugs; I25.2 Old myocardial infarction; K21.9 Gastro-esophageal reflux disease without esophagitis; M19.90 Unspecified osteoarthritis, unspecified site; Z95.5 Presence of coronary angioplasty implant and graft
CPT/HCPCS: 73030; 99213; G0463